=== PATIENT | male | born 1965 | race Caucasian/White ===

== ENCOUNTER 2016-06-23 23:12 | Emergency (ER) | payer SELFPAY ==
--- NOTE | 2016-06-24 07:54 | RAD ---
LEFT FINGER 3 VIEWS HISTORY: Dog bite. COMPARISONS: None. TECHNIQUE: Frontal, lateral, and oblique views of the left thumb. ALIGNMENT: Grossly unremarkable. FRACTURE: No displaced acute fracture. SOFT TISSUES: Soft tissue swelling of the thumb and thenar eminence without soft tissue gas. RADIOOPAQUE FOREIGN BODY: 1.5 mm linear radiopaque foreign body at the base of the second digit. IMPRESSION: Soft tissue swelling of the thumb, no malalignment or soft tissue gas. Age-indeterminate 1.5 mm foreign body, at the base of the left second digit.
== END 2016-06-24 02:38 | disposition short-term general hospital (02) ==
LOC: ED 23:12
DX: S61.052A Open bite of left thumb without damage to nail, initial encounter (principal); F17.210 Nicotine dependence, cigarettes, uncomplicated; M65.842 Other synovitis and tenosynovitis, left hand; W54.0XXA Bitten by dog, initial encounter; Y92.9 Unspecified place or not applicable